=== PATIENT | male | born 1935 ===

== ENCOUNTER 2025-07-04 09:27 | Outpatient (CLI) | payer MEDICARE | END 2025-07-04 09:28 | disposition home or self-care (01) | LOC: PET 09:27 | PROVIDERS: ATTEND Radiology Radiation Oncology | DX: C21.0 Malignant neoplasm of anus, unspecified (principal); R59.0 Localized enlarged lymph nodes; K62.89 Other specified diseases of anus and rectum | CPT/HCPCS: 78815; A9552 ==